=== PATIENT | male | born 1990 | race African-American/Black ===

== ENCOUNTER 2018-04-13 15:21 | Emergency (ER) | payer MEDICAID ==
[~2018-04-13] VITALS: Ht 185.4 cm; Wt 91.9 kg
[2018-04-13 15:27] VITALS: BP 114/71
[2018-04-13] MEDS ORDERED: AZITHROMYCIN 250 MG TABLET PO ONE (15:30)
[2018-04-13] MEDS ORDERED: CEFTRIAXONE 250 MG IM ONE (15:30)
[2018-04-13] MEDS ORDERED: AZITHROMYCIN 500 MG TABLET ONE (16:06)
[2018-04-13] MEDS ORDERED: CEFTRIAXONE 250 MG ONE (16:06)
--- NOTE | 2018-04-13 16:14 | NUR ---
ROCEPHIN 250 MG IM AND ZITHROMAX 1GM GIVEN PO PER ERP ORDER. UNABLE TO DOCUMENT ON EMAR AT THIS TIME.
== END 2018-04-13 16:20 | disposition home or self-care (01) ==
LOC: ED 15:56
DX: A74.9 Chlamydial infection, unspecified (principal); A54.9 Gonococcal infection, unspecified
CPT/HCPCS: 99281; J0696

== ENCOUNTER 2019-06-21 12:57 | Emergency (ER) | payer MEDICAID ==
[~2019-06-21] VITALS: Ht 185.4 cm; Wt 99.5 kg
[2019-06-21 13:00] VITALS: BP 132/94
--- NOTE | 2019-06-21 13:21 | NUR ---
PAT IS MEETING W THIS PT IN [facility]. WILL D/C FROM HERE.
== END 2019-06-21 13:42 | disposition home or self-care (01) ==
LOC: ED 13:00
DX: J45.41 Moderate persistent asthma with (acute) exacerbation (principal); Z76.0 Encounter for issue of repeat prescription
CPT/HCPCS: 99281; 99283

== ENCOUNTER 2020-05-18 13:10 | Emergency (ER) | payer MEDICAID ==
[~2020-05-18] VITALS: Ht 185.4 cm; Wt 95.2 kg
[2020-05-18 13:16] VITALS: BP 146/88
[2020-05-18] MEDS ORDERED: IBUPROFEN 600 MG TABLET PO ONE (14:30)
[2020-05-18] MEDS ORDERED: IBUPROFEN 600 MG TABLET ONE (14:44)
--- NOTE | 2020-05-18 14:56 | NUR ---
PT MEDICATED PER APR. ERP IN TO UPATE PT ON POC
== END 2020-05-18 16:03 | disposition home or self-care (01) ==
LOC: ED 14:13
DX: S62.232A Other displaced fracture of base of first metacarpal bone, left hand, initial encounter for closed fracture (principal); J45.909 Unspecified asthma, uncomplicated; F17.210 Nicotine dependence, cigarettes, uncomplicated; X58.XXXA Exposure to other specified factors, initial encounter; Y93.89 Activity, other specified; Y92.009 Unspecified place in unspecified non-institutional (private) residence as the place of occurrence of the external cause; Y99.8 Other external cause status
CPT/HCPCS: 29125; 99283